=== PATIENT | female | born 1970 | race Caucasian/White ===

== ENCOUNTER 2017-06-26 21:37 | Outpatient (CLI) | payer OTHER | END 2017-06-26 21:38 | disposition critical access hospital (66) | LOC: EMS 21:37 | PROVIDERS: ATTEND Surgery | DX: Z72.9 Problem related to lifestyle, unspecified (principal) | CPT/HCPCS: A0425; A0429 ==

== ENCOUNTER 2017-06-26 22:00 | Emergency (ER) | payer OTHER ==
[2017-06-26] MEDS ORDERED: MAGNESIUM SULFATE 2 GRAM 2 GM/50 ML BAG IV STA (22:11)
[2017-06-26] MEDS ORDERED: MULTIVITAMIN 10 ML in SODIUM CHLORIDE 0.9% 1,000 ML IV STA (22:11)
[2017-06-26] MEDS ORDERED: THIAMINE INJ 100 MG, FOLIC ACID INJ 1 MG in SODIUM CHLORIDE 0.9% 100ML 100 ML IV STA (22:11)
[2017-06-26] MEDS ORDERED: SODIUM CHLORIDE 0.9% 1,000 ML IV ONE (22:12)
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
[2017-06-26] MEDS ORDERED: LORazepam 2 MG/ML VIAL IVP STA (22:18)
[2017-06-26 22:38] LABS: BASOPHILS # (AUTO) 0.1 10^3/uL (0.0-0.1); BASOPHILS % (AUTO) 1.3 %; EOSINOPHILS % (AUTO) 0.7 %; HCT - HEMATOCRIT 38.8 % (37.0-47.0); HGB - HEMOGLOBIN 12.7 g/dL (12.0-16.0); LYMPHOCYTES # (AUTO) 1.4 10^3/uL (1.5-3.5); LYMPHOCYTES % (AUTO) 27.4 %; MEAN CORPUSCULAR HEMOGLOBIN 29.6 pg (27.0-31.0); MEAN CORPUSCULAR HGB CONC 32.7 g/dL (32.0-36.0); MEAN CORPUSCULAR VOLUME 90.5 fL (81.0-99.0); MEAN PLATELET VOLUME 6.5 fL (7.9-10.8); MONOCYTES # (AUTO) 0.3 10^3/uL (0.0-1.0); MONOCYTES % (AUTO) 6.3 %; NEUTROPHILS # (AUTO) 3.4 10^3/uL (1.5-6.6); NEUTROPHILS % (AUTO) 64.3 %; RED BLOOD COUNT 4.28 10^6/uL (4.20-5.40); RED CELL DISTRIBUTION WIDTH 17.3 % (12.0-15.0); UNCORRECTED WHITE BLOOD COUNT 5.2 x10^3/uL; WHITE BLOOD COUNT 5.2 x10^3/uL (4.8-10.8)
[2017-06-26] MEDS ORDERED: THIAMINE 100 MG/1 ML 2 ML MDV ONE (22:48)
[2017-06-26 23:04] LABS: ALBUMIN/GLOBULIN RATIO 1.5 (1.0-2.2); BILIRUBIN,TOTAL 0.5 mg/dL (0.2-1.0); BUN - BLOOD UREA NITROGEN 13 mg/dL (6-20); CALCIUM 8.6 mg/dL (8.5-10.3); CARBON DIOXIDE - CO2 20 mmol/L (21-32); CHLORIDE 98 mmol/L (101-111); CREATININE 0.6 mg/dL (0.4-1.0); GFR - MDRD 108 (>89); GLUCOSE 87 mg/dL (70-100); LIPASE 36 U/L (22-51); MAGNESIUM 1.8 mg/dL (1.7-2.8); PHOSPHORUS 3.1 mg/dL (2.5-4.6); POTASSIUM 3.8 mmol/L (3.5-5.0); SALICYLATE < 6.0 mg/dL; SODIUM 140 mmol/L (135-145); TOTAL PROTEIN 7.4 g/dL (6.7-8.2)
--- NOTE | 2017-06-26 23:07 | XRAY Preliminary Report ---
Exam: XR WRIST 3 VIEW LT IMPRESSION: No evidence of fracture. [facility] SITE ID: [id number]
--- NOTE | 2017-06-26 23:10 | XRAY Report ---
EXAM: LEFT WRIST RADIOGRAPHY EXAM DATE: 06/26/2017 10:55 PM. CLINICAL HISTORY: Fall 5 days ago, L thumb and wrist pain. COMPARISON: None. TECHNIQUE: 3 views. FINDINGS: Bones: Cysts noted within the distal scaphoid. Joints: Normal. No subluxations. Soft Tissues: Normal. No soft tissue swelling. IMPRESSION: No evidence of fracture. [facility] Referring Provider Line: [phone] SITE ID: [id number]
[2017-06-26 23:11] LABS: BILIRUBIN,URINE NEGATIVE (NEGATIVE)
--- NOTE | 2017-06-26 23:12 | XRAY Preliminary Report ---
Exam: XR HAND 3 VIEW LT IMPRESSION: Nondisplaced intra-articular metaphyseal corner fracture and small avulsion fracture base of distal phalanx of thumb. [facility] SITE ID: [id number]
[2017-06-26 23:14] LABS: ACETAMINOPHEN < 10 ug/mL (10-30)
--- NOTE | 2017-06-26 23:14 | XRAY Report ---
EXAM: LEFT HAND RADIOGRAPHY EXAM DATE: 06/26/2017 10:53 PM. CLINICAL HISTORY: Fall 5 days ago, L thumb and wrist pain. COMPARISON: None. TECHNIQUE: 3 views. FINDINGS: Bones: Nondisplaced intra-articular metaphyseal corner fracture involving the distal phalanx of the t humb. There is also a 3 mm avulsed fragments ventrally. No other fracture seen. Joints: Normal. No subluxations. Soft Tissues: Normal. No soft tissue swelling. IMPRESSION: Nondisplaced intra-articular metaphyseal corner fracture and small avulsion fracture base of distal phalanx of thumb. [facility] Referring Provider Line: [phone] SITE ID: [id number]
[2017-06-26 23:15] LABS: HCG UR QUAL NEGATIVE; UA CHARGE (STRIP ONLY) YES; UR CULTURE IF IND NOT INDICATED
[2017-06-26] MEDS ORDERED: chlordiazePOXIDE 25 MG CAPSULE PO STA (23:36)
[2017-06-27] MEDS ORDERED: LORazepam 2 MG/ML VIAL IVP STA (00:50)
[2017-06-27] MEDS ORDERED: chlordiazePOXIDE 25 MG CAPSULE PO STA (02:01)
[2017-06-27 07:11] LABS: BUN - BLOOD UREA NITROGEN 10 mg/dL (6-20); CALCIUM 7.5 mg/dL (8.5-10.3); CARBON DIOXIDE - CO2 24 mmol/L (21-32); CHLORIDE 104 mmol/L (101-111); CREATININE 0.5 mg/dL (0.4-1.0); GFR - MDRD 133 (>89); GLUCOSE 116 mg/dL (70-100); POTASSIUM 3.6 mmol/L (3.5-5.0); SODIUM 135 mmol/L (135-145)
[2017-06-27] MEDS ORDERED: LORazepam 2 MG/ML VIAL IVP PRN (07:34)
[2017-06-27] MEDS ORDERED: LORazepam 2 MG/ML VIAL ONE (07:42)
[2017-06-27] MEDS ORDERED: NICOTINE 14 MG PATCH TOP STA (07:49)
[2017-06-27] MEDS ORDERED: LORazepam 0.5 MG TABLET PO STA (09:07)
--- NOTE | 2017-06-27 09:09 | ED Physician Documentation ---
History of Present Illness - Stated complaint Stated Complaint: ETOH/HALLUCINATIONS - Chief complaint Chief Complaint: MHE PD PAST MEDICAL HISTORY - Past Medical History Cardiovascular: None Respiratory: None Neuro: None Endocrine/Autoimmune: None GI: None VOLTAGE TESTER: None : None HEENT: None Psych: Depression, Anxiety, Bipolar disorder Musculoskeletal: Chronic back pain Derm: None - Past Surgical History Past Surgical History: Yes General: Appendectomy Ortho: Other HEENT: Tonsil/Adenoidectomy - Present Medications Home Medications: Ambulatory Orders Medication Instructions Recorded Confirmed Citalopram Hydrobromide [Celexa] 40 mg PO DAILY 12/04/13 03/08/15 Carbamazepine 200 mg PO DAILY 06/26/17 06/26/17 Cholecalciferol (Vitamin D3) 2,000 unit PO DAILY 06/26/17 06/26/17 [Vitamin D] Cyclobenzaprine [Flexeril] 10 mg PO TID 06/26/17 06/26/17 Gabapentin 200 mg PO TID 06/26/17 06/26/17 Lamotrigine [Lamictal (Green)] 1 tab PO DAILY 06/26/17 06/26/17 Magnesium Oxide 400 mg PO DAILY 06/26/17 06/26/17 traZODone [Desyrel] 50 mg PO DAILY PM 06/26/17 06/26/17 Lorazepam [Ativan] 1 - 2 mg PO Q6HR PRN #20 tablet 06/27/17 - Allergies Allergies/Adverse Reactions: Allergies Allergy/AdvReac Type Severity Reaction Status Date / Time No Known Drug Allergies Allergy Verified 12/04/13 10:23 - Social History Does the pt smoke?: No Smoking Status: Never smoker Does the pt drink ETOH?: No ETOH Use: Wine, Liquor Does the pt have substance abuse?: No - Immunizations Immunizations are current?: Yes Immunizations: TDAP >10years/unknown - POLST Patient has POLST: No Results - Vitals Vitals: Vital Signs - 24 hr 06/26/17 06/26/17 06/27/17 22:01 23:06 00:10 Temperature 36.8 C Heart Rate 110 H 103 H 97 Respiratory 20 15 Rate Blood Pressure 139/96 H 120/79 O2 Saturation 100 99 06/27/17 06/27/17 06/27/17 01:59 03:26 05:43 Temperature Heart Rate 110 H 100 99 Respiratory 22 26 H 22 Rate Blood Pressure 119/72 116/70 112/71 O2 Saturation 99 100 98 06/27/17 06/27/17 06/27/17 07:01 07:40 08:14 Temperature Heart Rate 87 92 84 Respiratory 21 16 15 Rate Blood Pressure 116/72 116/84 H 122/90 H O2 Saturation 99 97 98 Oxygen O2 Source Room air - Labs Labs: Laboratory Tests 06/26/17 06/26/17 06/26/17 22:25 22:25 22:55 WBC 5.2 RBC 4.28 Hgb 12.7 Hct 38.8 MCV 90.5 MCH 29.6 MCHC 32.7 RDW 17.3 H Plt Count 364 MPV 6.5 L Neut # 3.4 Lymph # 1.4 L [place] # 0.3 Eos # 0.0 Baso # 0.1 Absolute Nucleated RBC 0.00 Nucleated RBC % 0.0 Sodium 140 Potassium 3.8 Chloride 98 L Carbon Dioxide 20 L Anion Gap 22.0 H BUN 13 Creatinine 0.6 Estimated GFR (MDRD) 108 Glucose 87 Calcium 8.6 Phosphorus 3.1 Magnesium 1.8 Total Bilirubin 0.5 AST 95 H ALT 72 H Alkaline Phosphatase 58 Total Protein 7.4 Albumin 4.4 Globulin 3.0 Albumin/Globulin Ratio 1.5 Lipase 36 Urine Color Urine Clarity Urine pH Ur Specific [place] Urine Protein Urine Glucose (UA) Urine Ketones Urine Occult Blood Urine Nitrite Urine Bilirubin Urine Urobilinogen Ur Leukocyte Esterase Ur Microscopic Review Urine Culture Comments Urine HCG, Qual Salicylates < 6.0 Urine Opiates Screen NEGATIVE Ur Oxycodone Screen NEGATIVE Urine Methadone Screen NEGATIVE Ur Propoxyphene Screen NEGATIVE Acetaminophen < 10 L Ur Barbiturates Screen NEGATIVE Ur Tricyclics Screen NEGATIVE Ur Phencyclidine Scrn NEGATIVE Ur Amphetamine Screen NEGATIVE U Methamphetamines Scrn NEGATIVE U Benzodiazepines Scrn POSITIVE H Urine Cocaine Screen NEGATIVE U Cannabinoids Screen NEGATIVE Ethyl Alcohol 250.0 06/26/17 06/27/17 22:56 06:50 WBC RBC Hgb Hct MCV MCH MCHC RDW Plt Count MPV Neut # Lymph # [place] # Eos # Baso # Absolute Nucleated RBC Nucleated RBC % Sodium 135 Potassium 3.6 Chloride 104 Carbon Dioxide 24 Anion Gap 7.0 BUN 10 Creatinine 0.5 Estimated GFR (MDRD) 133 Glucose 116 H Calcium 7.5 L Phosphorus Magnesium Total Bilirubin AST ALT Alkaline Phosphatase Total Protein Albumin Globulin Albumin/Globulin Ratio Lipase Urine Color YELLOW Urine Clarity CLEAR Urine pH 6.0 Ur Specific [place] >=1.030 H Urine Protein NEGATIVE Urine Glucose (UA) NEGATIVE Urine Ketones 40 H Urine Occult Blood NEGATIVE Urine Nitrite NEGATIVE Urine Bilirubin NEGATIVE Urine Urobilinogen 0.2 (NORMAL) Ur Leukocyte Esterase NEGATIVE Ur Microscopic Review NOT INDICATED Urine Culture Comments NOT INDICATED Urine HCG, Qual NEGATIVE Salicylates Urine Opiates Screen Ur Oxycodone Screen Urine Methadone Screen Ur Propoxyphene Screen Acetaminophen Ur Barbiturates Screen Ur Tricyclics Screen Ur Phencyclidine Scrn Ur Amphetamine Screen U Methamphetamines Scrn U Benzodiazepines Scrn Urine Cocaine Screen U Cannabinoids Screen Ethyl Alcohol < 5.0 Departure - Departure Disposition: 01 Home, Self Care Clinical Impression: Bipolar 1 disorder Alcohol intoxication Qualifiers: Complication of substance-induced condition: uncomplicated Qualified Code(s): F10.920 - Alcohol use, unspecified with intoxication, uncomplicated Thumb fracture Qualifiers: Encounter type: initial encounter Fracture type: closed Phalanx: distal Fracture alignment: nondisplaced Laterality: left Qualified Code(s): S62.525A - Nondisplaced fracture of distal phalanx of left thumb, initial encounter for closed fracture Condition: Stable Instructions: ED Alcohol Intoxication, ED Withdrawal Alcohol Follow-Up: Camilo Minor DO [Provider Admit Priv/Credential] - Prescriptions: Lorazepam [Ativan] 1 - 2 mg PO Q6HR PRN #20 tablet PRN Reason: withdrawal symptoms
[2017-06-27 09:14] VITALS: BP 135/94
[2017-06-27] MEDS ORDERED: ONDANSETRON ODT 4 MG TABLET TL STA (09:33)
== END 2017-06-27 09:37 | disposition home or self-care (01) ==
LOC: EDUNIT# → ED 22:00
DX: F31.9 Bipolar disorder, unspecified (principal); F10.920 Alcohol use, unspecified with intoxication, uncomplicated; S62.525A Nondisplaced fracture of distal phalanx of left thumb, initial encounter for closed fracture; X58.XXXA Exposure to other specified factors, initial encounter
CPT/HCPCS: 29125; 73110; 73130; 80048; 80053; 80306; 80307; 80320; 80329; 81003; 81025; 83690; 83735; 84100; 85025; 93005; 96361; 96365; 96368; 96375; 96376; 99284; A9270; J2060; J3411; Q0162; 36415; 81001; 87086